=== PATIENT | female | born 1995 | race Caucasian/White ===

== ENCOUNTER 2020-07-01 18:17 | Emergency (ER) | payer OTHER ==
[~2020-07-01] VITALS: Ht 167.6 cm; Wt 65.8 kg
[2020-07-01 18:46] LABS: BASOPHILS % 0.2 % (0.0-1.0); EOSINOPHILS # (AUTO) 0.4 (0.0-0.4); EOSINOPHILS % 4.7 % (0.0-6.0); HEMATOCRIT 38.6 % (34.2-44.1); LYMPHOCYTES # (AUTO) 3.6 (1.0-3.2); LYMPHOCYTES % 39.3 % (18.0-39.1); MEAN CORPUSCULAR HEMOGLOBIN 29.5 pg (28-32); MEAN CORPUSCULAR HGB CONC 33.7 g/dL (31-35); MEAN CORPUSCULAR VOLUME 87.5 fL (81-99); MONOCYTES # (AUTO) 0.6 (0.2-0.8); MONOCYTES % 6.3 % (4.4-11.3); NEUTROPHILS # (AUTO) 4.5 (2.1-6.9); NEUTROPHILS % 49.3 % (38.7-80.0); PLATELET COUNT 187 x10e3/uL (140-360); RED BLOOD COUNT 4.41 x10e6/uL (3.6-5.1); RED CELL DISTRIBUTION WIDTH 11.4 % (11.7-14.4)
[2020-07-01 19:09] LABS: ALANINE AMINOTRANSFERASE 19 IU/L (0-55); ALBUMIN 4.2 g/dL (3.5-5.0); ALBUMIN/GLOBULIN RATIO 1.2 (0.8-2.0); ALKALINE PHOSPHATASE 40 IU/L (40-150); ANION GAP 12.7 mmol/L (8-16); BLOOD UREA NITROGEN 13 mg/dL (7-26); BUN/CREATININE RATIO 16 (6-25); CALCIUM 8.8 mg/dL (8.4-10.2); CARBON DIOXIDE 25 mmol/L (22-29); CHLORIDE 106 mmol/L (98-107); EST GLOMERULAR FILTRATION RATE > 60 ML/MIN (60-); GLUCOSE 87 mg/dL (74-118); POTASSIUM 3.7 mmol/L (3.5-5.1); SODIUM 140 mmol/L (136-145)
[2020-07-01 19:50] LABS: CLARITY,URINE SL CLOUDY (CLEAR); COLOR,URINE YELLOW (YELLOW); KETONES,URINE NEGATIVE (NEGATIVE); LEUKOCYTE ESTERASE ,URINE SMALL (NEGATIVE); NITRITE,URINE NEGATIVE (NEGATIVE); PROTEIN,URINE DIPSTICK NEGATIVE (NEGATIVE); URINE UROBILINOGEN 0.2 mg/dL (0.2 - 1)
[2020-07-01 19:57] LABS: BACTERIA,URINE MODERATE /HPF; EPITHELIAL CELLS,URINE MODERATE /LPF
[2020-07-01 19:58] LABS: AMORPHOUS SEDIMENT,URINE FEW (FEW)
[2020-07-01] MEDS ORDERED: BACTRIM DS TAB1 EACH PO (20:11)
[2020-07-01] MEDS ORDERED: PYRIDIUM100 MG PO (20:11)
== END 2020-07-01 20:24 | disposition home or self-care (01) ==
LOC: ER 18:30
DX: R30.0 Dysuria (principal); N39.0 Urinary tract infection, site not specified; M54.5 Low back pain; F17.210 Nicotine dependence, cigarettes, uncomplicated
CPT/HCPCS: 36415; 80053; 81001; 83690; 84702; 85025; 93005; 99283

== ENCOUNTER 2020-08-09 08:19 | Emergency (ER) | payer MEDICARE ==
[~2020-08-09] VITALS: Ht 167.6 cm; Wt 65.8 kg
[~2020-08-09 08:19] MED LIST: BACTRIM DS TAB1 EACH PO; PYRIDIUM100 MG PO
[2020-08-09] MEDS ORDERED: KETOROLAC TROMETHAMINE 60 MG/2 ML VIAL IM ONE (08:30)
[2020-08-09] MEDS ORDERED: MOTRIN200 MG PO (09:37)
[2020-08-09] MEDS ORDERED: PREDNISONE20 MG PO (09:37)
[2020-08-09 09:50] VITALS: BP 124/65
== END 2020-08-09 09:52 | disposition home or self-care (01) ==
LOC: ER 08:25
DX: M54.12 Radiculopathy, cervical region (principal)
CPT/HCPCS: 72125; 99283; J1885

== ENCOUNTER 2021-04-14 18:09 | Emergency (ER) | payer OTHER ==
[~2021-04-14] VITALS: Ht 170.2 cm; Wt 81.6 kg
[~2021-04-14 18:09] MED LIST changes: +MOTRIN200 MG PO; +PREDNISONE20 MG PO
== END 2021-04-14 18:48 | disposition home or self-care (01) ==
LOC: ER 18:23
DX: O46.93 Antepartum hemorrhage, unspecified, third trimester (principal); R10.30 Lower abdominal pain, unspecified
CPT/HCPCS: 99283